=== PATIENT | female | born 1995 | race Caucasian/White ===

== ENCOUNTER → 2019-12-29 | Outpatient (CLI) | payer OTHER, SELFPAY ==
[2020-01-01 20:07] LABS: Chlamydia By Nucleic Acid AMP Negative (Negative)
[2020-01-01 23:07] LABS: Gonococcus By Nucleic Acid AMP Negative (Negative); HPV Reflexed? NOT INDICATED
== END | disposition home or self-care (01) ==
PROVIDERS: Referring Provider Nurse Practitioner Family; Visit Provider Nurse Practitioner Family
DX: Z12.4 Encounter for screening for malignant neoplasm of cervix (principal)
CPT/HCPCS: 87491; 87591; 88175; G0145